=== PATIENT | female | born 1980 | race Caucasian/White ===

== ENCOUNTER 2018-07-25 18:20 | Emergency (ER) | payer OTHER, MEDICAID ==
[~2018-07-25] VITALS: Ht 162.6 cm; Wt 94.4 kg
[~2018-07-25 18:20] MED LIST: ACETAMINOPHEN-1 EAC1; AMOXICILLIN 50500 MG PO; CIPRO500 MG PO; CLEOCIN HCL300 MG PO; HYDROCODONE-AP1 EAC6 PO; METHERGINE; MOBIC7.5 MG PO; NORCO 5-325 TA1 EACH PO; ORABASE11.9 GM MM; PREDNISONE50 MG PO; PROAIR HFA8.5 GM INH; ROBAXIN 750 MG750 M1 PO; SPIRONOLACTONE100 M1 GT; SPRINTEC1 EACH PO; TESSALON PERLE100 MG PO; TRAMADOL 50 MG50 MG PO; ZPAK PO
[2018-07-25] MEDS ORDERED: ULTRAM 50MG TAB50 MG PO (18:32)
[2018-07-25] MEDS ORDERED: DOXYCYCLINE 10100 MG PO (20:01)
[2018-07-25] MEDS ORDERED: PREDNISONE50 MG PO (20:04)
[2018-07-25] MEDS ORDERED: VENTOLIN HFA 1818 GM INH (20:04)
[2018-07-25 20:33] VITALS: BP 121/44
== END 2018-07-25 20:34 | disposition home or self-care (01) ==
LOC: M.ERS 18:20
DX: J40 Bronchitis, not specified as acute or chronic (principal); N76.4 Abscess of vulva; M19.90 Unspecified osteoarthritis, unspecified site; Z88.8 Allergy status to other drugs, medicaments and biological substances; Z88.2 Allergy status to sulfonamides; Z98.890 Other specified postprocedural states; Z90.49 Acquired absence of other specified parts of digestive tract

== ENCOUNTER 2018-07-28 05:26 | Emergency (ER) | payer OTHER, MEDICAID ==
[~2018-07-28] VITALS: Ht 154.9 cm; Wt 86.2 kg
[~2018-07-28 05:26] MED LIST changes: +DOXYCYCLINE 10100 MG PO; +ULTRAM 50MG TAB50 MG PO; +VENTOLIN HFA 1818 GM INH
[2018-07-28] MEDS ORDERED: COMPAZINE10 MG PO (06:38)
[2018-07-28 07:10] VITALS: BP 129/68
== END 2018-07-28 07:10 | disposition home or self-care (01) ==
LOC: M.ERS 05:26
DX: G43.909 Migraine, unspecified, not intractable, without status migrainosus (principal); M19.90 Unspecified osteoarthritis, unspecified site; Z98.890 Other specified postprocedural states; Z88.2 Allergy status to sulfonamides; Z88.8 Allergy status to other drugs, medicaments and biological substances

== ENCOUNTER 2018-10-01 22:51 | Emergency (ER) | payer OTHER, MEDICAID ==
[~2018-10-01] VITALS: Ht 162.6 cm; Wt 88.5 kg
[~2018-10-01 22:51] MED LIST changes: +COMPAZINE10 MG PO
[2018-10-02 02:02] VITALS: BP 138/76
== END 2018-10-02 02:02 | disposition home or self-care (01) ==
LOC: M.ERS 22:51
DX: S89.82XA Other specified injuries of left lower leg, initial encounter (principal); M19.90 Unspecified osteoarthritis, unspecified site; Z98.890 Other specified postprocedural states; Z90.49 Acquired absence of other specified parts of digestive tract; Z88.2 Allergy status to sulfonamides; Z88.8 Allergy status to other drugs, medicaments and biological substances; W01.0XXA Fall on same level from slipping, tripping and stumbling without subsequent striking against object, initial encounter; Y93.89 Activity, other specified; Y92.89 Other specified places as the place of occurrence of the external cause; Y99.8 Other external cause status